=== PATIENT | male | born 1970 | race Caucasian/White ===

== ENCOUNTER 2017-07-05 20:12 | Emergency (ER) | payer OTHER ==
[2017-07-05 21:08] VITALS: RESP 20
--- NOTE | 2017-07-05 22:36 | C.PDOC ---
History Of Present Illness Patient brought to ED by EMS for public acute ETOH intoxication. At ED patient complaints of left elbow pain and denies injury, numbness, weakness or any other complaints at this time. Time Seen by Provider: 07/05/17 22:35 Chief Complaint (Nursing): Substance Abuse History Per: Patient History/Exam Limitations: no limitations Onset/Duration Of Symptoms: Hrs Current Symptoms Are (Timing): Still Present Suicide/Self Injury Attempted (Context): None Modifying Factor(s): Alcohol Severity: Mild Pain Scale Rating Of: 2 Associated Symptoms: denies: Anger, Anxiety, Suicidal Thoughts Involuntary Hold By: None Past Medical History Reviewed: Historical Data, Nursing Documentation, Vital Signs Vital Signs: Last Vital Signs Temp 98.2 F 07/06/17 04:42 Pulse 75 07/06/17 04:42 Resp 20 07/06/17 04:42 BP 126/78 07/06/17 04:42 Pulse Ox 99 07/06/17 04:42 - Medical History PMH: Diabetes, HTN Surgical History: No Surg Hx Family History: States: No Known Family Hx - Social History Hx Tobacco Use: No Hx Alcohol Use: Yes Hx Substance Use: No - Immunization History Hx Tetanus Toxoid Vaccination: No Hx Influenza Vaccination: No Hx Pneumococcal Vaccination: No Review Of Systems Constitutional: Negative for: Fever, Chills Cardiovascular: Negative for: Chest Pain Respiratory: Negative for: Shortness of Breath Gastrointestinal: Negative for: Nausea, Vomiting Skin: Negative for: Rash Psych: Negative for: Suicidal ideation Physical Exam - Physical Exam Appears: Non-toxic, Other (ETOH on breath) Skin: Warm, Dry, No Rash Head: Normacephalic Eye(s): bilateral: PERRL, EOMI Oral Mucosa: Moist Neck: Supple Cardiovascular: Rhythm Regular Respiratory: No Rales, No Rhonchi, No Wheezing Gastrointestinal/Abdominal: Soft, No Tenderness, No Guarding, No Rebound Extremity: Normal ROM, Capillary Refill (<2 seconds) Pulses: Left Radial: Normal, Right Radial: Normal Neurological/Psych: Oriented x3, Normal Motor, Normal Sensation ED Course And Treatment O2 Sat by Pulse Oximetry: 97 (RA) Pulse Ox Interpretation: Normal - Other Rad elbow X-Ray: Interpreted by Me, Viewed By Me Interpretation: no fx or dislocation Reevaluation Time: 05:08 Reassessment Condition: Improved Disposition Counseled Patient/Family Regarding: Studies Performed, Diagnosis, Need For Followup - Disposition Referrals: [facility] [Outside] Disposition: HOME/ ROUTINE Disposition Time: 22:35 Condition: FAIR Instructions: Alcohol Intoxication (DC), Arthralgia (ED) Forms: [employer] ([place]) - Clinical Impression Clinical Impression: Alcohol intoxication, Elbow pain, left - Scribe Statement The provider has reviewed the documentation as recorded by the Scribhunter Bernard All medical record entries made by the Catherine were at my direction and personally dictated by me. I have reviewed the chart and agree that the record accurately reflects my personal performance of the history, physical exam, medical decision making, and the department course for this patient. I have also personally directed, reviewed, and agree with the discharge instructions and disposition.
[2017-07-06 04:47] VITALS: BP 126/78; PULSE 75; TEMP 98.2
[2017-07-06 05:12] VITALS: O2SAT 97
--- NOTE | 2017-07-06 10:30 | RAD ---
PROCEDURE: Radiographs of the left elbow. HISTORY: pain COMPARISON: No prior. FINDINGS: BONES: Normal. No fracture.Incidental finding(s): Small olecranon spur. JOINTS: Normal. No osteoarthritis. SOFT TISSUES: Normal. JOINT EFFUSION: None. OTHER FINDINGS: None IMPRESSION: No acute findings related to/accounting for the clinical presentation.
== END 2017-07-06 05:34 | disposition home or self-care (01) ==
LOC: C.ER 20:12
DX: M25.522 Pain in left elbow (principal); F10.120 Alcohol abuse with intoxication, uncomplicated; Y90.9 Presence of alcohol in blood, level not specified